=== PATIENT | female | born 1985 | race Caucasian/White ===

== ENCOUNTER 2018-11-13 14:47 | Emergency (ER) | payer BC ==
[~2018-11-13] VITALS: Ht 160 cm; Wt 61.7 kg
[2018-11-13 14:59] VITALS: BP_SYST 99
--- NOTE | 2018-11-13 15:42 | NUR ---
Patient to ER bed 7 to gown for evaluation. Side rails up. Report given to Donnie APONTE.
--- NOTE | 2018-11-13 15:50 | NUR ---
ER BIJU Nunez examining patient.
--- NOTE | 2018-11-13 15:52 | NUR ---
Pt AAOx4 ambulated into ED c/o 11/15 pain to R fifth toe s/p fall while dancing and holding daughter prior to arrival. Pt denies KO. Mild swelling noted to site. No other injuries/complaints per pt/noted. Will continue to monitor.
--- NOTE | 2018-11-13 16:18 | NUR ---
R 5th digit magda taped to R 4th digit. Pt tolerated well.
--- NOTE | 2018-11-13 16:26 | NUR ---
Patient given written and verbal discharge instructions and verbalizes understanding. ER CARE COMPANION Mayra discussed with patient the results and treatment provided. Patient in stable condition. ID arm band removed. Rx of Tylenol Extra Strength given. Patient educated on pain management and to follow up with PMD. Pain Scale 0. Opportunity for questions provided and answered. Medication side effect fact sheet provided.
[2018-11-13 16:27] VITALS: BP_SYST 104
== END 2018-11-13 16:26 | disposition home or self-care (01) ==
LOC: SED 14:47
DX: S92.511A Displaced fracture of proximal phalanx of right lesser toe(s), initial encounter for closed fracture (principal); X50.9XXA Other and unspecified overexertion or strenuous movements or postures, initial encounter; Y93.41 Activity, dancing; Y92.89 Other specified places as the place of occurrence of the external cause; Y99.8 Other external cause status
CPT/HCPCS: 99283